=== PATIENT | male | born 1995 | race Hispanic/Latino ===

== ENCOUNTER 2021-03-24 17:15 | Emergency (ER) | payer OTHER, SELFPAY ==
[2021-03-24 17:43] VITALS: BP 104/69; PULSE 90; RESP 18; TEMP 36.8; O2SAT 97; BMI 23.8
[2021-03-24 18:22] LABS: COVID19 -Nasal RAPID Negative (Negative)
--- NOTE | 2021-03-24 18:32 | ED_ITS ---
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 Does note some cough no significant dyspnea or fevers. No abdominal pain nausea vomiting or diarrhea. Related Data Allergies Allergy/AdvReac Type Severity Reaction Status Date / Time aripiprazole [From Abilify] Allergy Swelling Verified 03/24/21 17:43 of Lip/Tongue/Throat Review of Systems Review of Systems Narrative: Remainder of complete review of systems is otherwise unremarkable except for that included in the HPI. Patient History Medical History (Updated 03/24/21 @ 18:35 by Leonora Hughes MD) COVID-19 Social History Smoking Status: Current every day smoker Smoking Status: Current every day smoker tobacco type: vaping alcohol intake frequency: a few times a month Substance Use Type: does not use Exam Narrative Exam Narrative: General: Alert appropriate in no acute distress Respiratory: Able to speak in full sentences, no obvious respiratory distress Skin: No obvious rashes, warm and dry Neurologic: Grossly intact no obvious asymmetries or abnormalities Psych: appropriate insight and affect, cooperative Initial Vital Signs Initial Vital Signs: Vital Signs Temperature 98.2 F 03/24/21 17:43 Pulse Rate 90 03/24/21 17:43 Respiratory Rate 18 03/24/21 17:43 Blood Pressure 104/69 03/24/21 17:43 Pulse Oximetry 97 03/24/21 17:43 Course Orders Ordered: ED Orders 03/24/21 17:52 COVID19 -Nasal swab/Pre-Proc Stat Vital Signs Vital signs: Vital Signs - 8 hr 03/24/21 17:43 Temperature 98.2 F Pulse Rate 90 Respiratory Rate 18 Blood Pressure 104/69 Pulse Oximetry 97 MDM - URI/Sore Throat Lab Data Labs: Lab Results 03/24/21 Range/Units 17:52 SARS-CoV-2 (PCR) Negative (Negative) MDM Narrative Medical decision making narrative: 25-year-old gentleman with minor upper respiratory symptoms, double vaccinated without yet being boosted. COVID test is negative. Vital signs are unremarkable and he does not need admission. Discuss suggestions for minimizing exposure to his son vaccinated and 2 small children. He is safe for home discharge Discharge Plan Departure Patient Disposition: Home Clinical Impression: COVID-19 Instructions: DI for COVID-19 (Suspected or Confirmed ) Activity Restrictions/Additional Instructions: Thank you for being vaccinated Your COVID test today was positive. Your symptoms are minor because you have been vaccinated Please do all that you can to isolate from your and children for at least the 1st 5 days. By you can reintegrate into the household that please wear a mask all the time your at home for an additional 5 days. Please try an use a separate bathroom from the rest of your family for the full 10 days. If you find that you are getting worse or feeling more short of breath, please return to the ER
== END 2021-03-24 18:41 | disposition home or self-care (01) ==
PROVIDERS: Emergency Provider Emergency Medicine
DX: U07.1 COVID-19 (principal); F17.290 Nicotine dependence, other tobacco product, uncomplicated
CPT/HCPCS: 87635; 99281; C9803

== ENCOUNTER 2021-07-08 15:17 | Emergency (ER) | payer OTHER, SELFPAY ==
[2021-07-08 15:31] VITALS: BP 148/80; PULSE 80; RESP 20; TEMP 36.3; O2SAT 98
[2021-07-08 16:06] LABS: Appearance Urine UA CLEAR; Bilirubin Urine UA NEGATIVE (NEGATIVE); Color Urine UA YELLOW; Glucose Urine UA NEGATIVE (Negative); Ketones Urine UA NEGATIVE (NEGATIVE); Leukocyte Esterase Urine UA NEGATIVE (NEGATIVE); Nitrite Urine UA NEGATIVE (Negative); Occult Blood Urine UA NEGATIVE (Negative); Protein Urine UA NEGATIVE (Negative); Specific Gravity Urine UA 1.015 (1.000-1.035)
[2021-07-08 16:07] LABS: UR Morphine/Opiate cutoff 300 Negative (Negative); Ur Creatinine Normal (Normal); Ur Specific Gravity Normal (Normal); Urine Amphetamines Negative (Negative); Urine Barbiturates Negative (Negative); Urine Benzodiazepines Negative (Negative); Urine Cocaine Negative (Negative); Urine MDMA Negative (Negative); Urine Methadone Negative (Negative); Urine Methamphetamines Negative (Negative); Urine Oxycodone Negative (Negative); Urine Phencyclidine Negative (Negative); Urine Tetrahydrocannabinol Negative (Negative); Urine Tricyclic Antidepressant Negative (Negative); Urine pH Normal (Normal)
[2021-07-08 16:20] LABS: COVID19 -Nasal RAPID Negative (Negative)
[2021-07-08 16:25] LABS: Bacteria Urine None Seen; Culture Indicated Urine Cult Not Indicated; RBC Urine None Seen (0-5/HPF); WBC Urine None Seen (0-5/HPF)
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
--- NOTE | 2021-07-08 17:43 | PC.NURSE ---
Seen by STAGE SET DESIGNER. Sitting in lobby [place]
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
[2021-07-08 19:01] LABS: Add Manual Diff / Slide Review NO; Basophils Absolute Auto 100 /uL (0-100); Basophils Percent Auto 0.8 % (0-2); Eosinophils Absolute Auto 100 /uL (0-450); Eosinophils Percent Auto 1.2 % (2-4); Hematocrit 42.8 % (41-53); Hemoglobin 15.1 g/dL (13.5-17.5); Lymphocytes Absolute Auto 3400 /uL (1100-4500); Lymphocytes Percent Auto 45.7 % (25-40); Mean Corpuscular HGB Conc 35.3 % (30-36); Mean Corpuscular Hemoglobin 28.7 PG (26-34); Mean Corpuscular Volume 81.2 fL (80-100); Monocytes Absolute Auto 400 /uL (0-900); Monocytes Percent Auto 5.8 % (3-14); Neutrophils Absolute Auto 3400 /uL (1500-7000); Neutrophils Percent Auto 46.5 % (50-75); Platelet Count 169 X10^3/uL (150-400); Red Blood Cell Count 5.27 X10^6/uL (4.5-5.9); Red Cell Distribution Width 13.3 % (11.6-14.8); White Blood Cell Count 7.4 X10^3/uL (4.5-11.0)
[2021-07-08 19:26] LABS: Acetaminophen < 10 ug/mL (10-30); Alanine Aminotransferase 21 IU/L (<50); Albumin 4.8 g/dL (3.5-5.0); Albumin Globulin Ratio 1.8 (1.0-2.8); Alkaline Phosphatase 56 U/L (38-126); Aspartate Aminotransferase 31 IU/L (17-59); BUN Creatinine Ratio 13.2 (6-22); Bilirubin Total 0.5 mg/dL (0.2-1.3); Blood Urea Nitrogen 15 mg/dL (9-20); Calcium 9.1 mg/dL (8.4-10.2); Carbon Dioxide 28 mmol/L (22-32); Chloride 105 mmol/L (98-107); Estimated Glomerular Filt Rate > 60 mL/min (>60); Ethanol (ETOH) < 10 mg/dL; Globulin 2.7 g/dL (1.7-4.1); Glucose 85 mg/dL (70-100); HEMOLYSIS < 15 (0-50); Salicylate < 1.0 mg/dL (<20); Sodium 139 mmol/L (137-145); Total Protein 7.5 g/dL (6.3-8.2)
--- NOTE | 2021-07-08 19:30 | PC.NURSE ---
patient calm in room with visitor
--- NOTE | 2021-07-08 19:41 | CM.SWNOTE ---
ENGINEERING GEOLOGIST Note ENGINEERING GEOLOGIST calls [facility], it is reported they are full. ENGINEERING GEOLOGIST calls [facility] and leaves VM requesting return call. ENGINEERING GEOLOGIST calls [facility] and leaves VM requesting return call. ENGINEERING GEOLOGIST calls [facility] and it is reported that they are full today. ENGINEERING GEOLOGIST calls [facility] and it is reported they have no beds today. ENGINEERING GEOLOGIST calls [facility], it is reported that they are full today. ENGINEERING GEOLOGIST calls [facility], it is reported they are full today. ENGINEERING GEOLOGIST calls [facility] and it is reported that they have beds and can review patient, ENGINEERING GEOLOGIST faxes clinicals for review. ED team to f/u with [facility] (Ph.# [phone]). Plan: Continue to seek voluntary inpatient bed for patient. ALEX Corbin
[2021-07-08 19:50] LABS: Free T4, Direct Thyroxine 0.86 ng/dL (0.78-2.19)
--- NOTE | 2021-07-08 20:01 | PC.NURSE ---
patient calm, given snack by visitor.
--- NOTE | 2021-07-08 20:15 | PC.NURSE ---
Patient's partner visits with baby. Patient interacting with baby, seems to put patient in a good mood
--- NOTE | 2021-07-08 21:49 | PC.NURSE ---
patient talking on portable phone to [facility], calm, laying in bed
--- NOTE | 2021-07-08 22:41 | PC.NURSE ---
I spoke with Chelsey at [facility] and they accept. Garland López, BROACHING MACHINE SET UP OPERATOR accepts. the patient can be there at 5am. patient request to go by POV with his command. [place] approves. provider aware.
--- NOTE | 2021-07-08 22:56 | PC.NURSE ---
patients command requests that the patient goes by ambulance. [facility] made aware. Ambulance is set up to arrive around 04:50 am. patient and provider aware. Nurse to nurse at [phone]. patient going to [address] [place] [address].
--- NOTE | 2021-07-08 22:59 | PC.NURSE ---
provider okayed for patient to take home medications. patient took mirtazapine 7.5mg 1 tablet. hydroxizine 100mg. and prazosin 2mg. provider and charge nurse aware.
[2021-07-08 23:37] VITALS: BP 130/68; PULSE 89; RESP 18; O2SAT 98
--- NOTE | 2021-07-08 23:42 | PC.NURSE ---
nurse to nurse report was given by me allyn Ferrer at [facility]. provider and charge aware.
--- NOTE | 2021-07-08 23:45 | PC.NURSE ---
left pt attempting to sleep.
== END 2021-07-09 05:32 ==
PROVIDERS: Emergency Medicine; Emergency Provider Emergency Medicine
DX: R45.851 Suicidal ideations (principal); Z20.822 Contact with and (suspected) exposure to COVID-19
CPT/HCPCS: 36415; 80053; 80305; 80320; 80329; 81001; 84439; 84443; 85025; 87635; 99284; 99291; C9803; G0480

== ENCOUNTER 2021-07-18 09:10 | Emergency (ER) | payer OTHER, SELFPAY ==
[2021-07-18 09:20] VITALS: BP 123/73; PULSE 85; RESP 14; TEMP 36.5; O2SAT 96; BMI 22.5
--- NOTE | 2021-07-18 09:35 | PC.NURSE ---
Pt on 1:1 observation as he is high risk.
--- NOTE | 2021-07-18 09:35 | ED.PSYCH ---
HPI - Psych General Chief Complaint: Psychiatric Symptoms Stated Complaint: SI Time Seen by Provider: 07/18/21 09:18 Source: patient Mode of arrival: Ambulatory History of Present Illness HPI Narrative: Patient is a 26-year-old male. He is active duty [place]. He is here with his command for evaluation of suicidal ideation. He states that he initially was told to come here to be evaluated by his command but he is currently here voluntarily. Has had issues with suicidal ideation in the past. Earlier this month was seen and evaluated in this emergency department and voluntarily transferred to outpatient mental health facility and has been subsequently discharged. He states that last evening he was having thoughts of hurting himself. [place] He states that he had tow ropes in his car. He apparently attached them to the bridge and to himself however when he turned around he saw his dog in the truck which caused him to change his mind. He states that his dog is really the only reason that he has not killed himself. He states he does not have any desire to live despite having children. He has attempted suicide in the past. He denies any alcohol or drugs. He states he has been taking his medications as directed but has not taken them yet this morning. He contacted his command last evening after the events described above was brought to the emergency department today. Related Data Home Medications Medication Instructions Recorded Confirmed alprazolam 2 mg tablet 2 mg PO BID 07/18/21 07/18/21 escitalopram oxalate 20 mg tablet 20 mg PO DAILY 07/18/21 07/18/21 (Lexapro) mirtazapine 15 mg tablet (Remeron) 15 mg PO DAILY 07/18/21 07/18/21 prazosin 2 mg capsule 3 mg PO QPM 07/18/21 07/18/21 Allergies Allergy/AdvReac Type Severity Reaction Status Date / Time aripiprazole [From Abilipedro] Allergy Swelling Verified 07/18/21 09:27 of Lip/Tongue/Throat Review of Systems Cardiovascular Cardiovascular: Reports system reviewed and no additional complaints, except as documented Respiratory Respiratory: Reports system reviewed and no additional complaints, except as documented Gastrointestinal Gastrointestinal: Reports system reviewed and no additional complaints, except as documented Integumentary/Breasts Skin/Breast: Reports system reviewed and no additional complaints, except as documented Neurologic Neurologic: Reports system reviewed and no additional complaints, except as documented Hematologic/Lymphatic On Anticoagulants: No Patient History Medical History Anxiety COVID-19 Depression PTSD (post-traumatic stress disorder) Social History Smoking Status: Current every day smoker Smoking Status: Current every day smoker tobacco type: vaping alcohol intake frequency: holidays/special occasions only Substance Use Type: does not use Exam Initial Vital Signs Initial Vital Signs: Vital Signs Temperature 97.7 F 07/18/21 09:20 Pulse Rate 85 07/18/21 09:20 Respiratory Rate 14 07/18/21 09:20 Blood Pressure 123/73 07/18/21 09:20 Pulse Oximetry 96 07/18/21 09:20 HENMT Head: normal to inspection and normocephalic Resp Effort & Inspection: normal respiratory effort Cardio Rate: regular rate GI Inspection: normal to inspection Skin General: no rashes or lesions noted Neuro General: patient alert, patient awake, patient oriented x3 and moves all extremities Cognition: normal cognition Speech: speech normal Gait: normal gait Extrem General: normal to inspection Psych Other: Patient is calm, cooperative, does have suicidal ideation not intoxicated. Scores GCS Margi coma scale eye opening: Spontaneous Margi coma scale verbal response: Orientated [place] coma scale motor response: Obey commands [place] coma scale total score: 15 Course Orders Ordered: ED Orders 07/18/21 09:34 Urine Drug Screen, Rapid Stat 07/18/21 09:44 Consult to CAMP DINING ROOM ATTENDANT - Berry Grower Stat 07/18/21 10:06 Acetaminophen Stat Complete Blood Count AUTO DIFF Stat Comprehensive Metabolic Panel Stat Ethanol (ETOH) Stat Free T4, Direct Thyroxine Stat Salicylate Stat Thyroid Stimulating Hormone Stat 07/18/21 10:13 COVID19 -Nasal RAPID/Pre-Proc Stat Discontinued Medications Diazepam (Diazepam 5 Mg Tablet) 5 mg PO NOW ONE Stop: 07/18/21 09:37 Last Admin: 07/18/21 09:51 Dose: 5 mg Documented by: MIKE Diazepam (Diazepam 5 Mg Tablet) 5 mg PO NOW ONE Stop: 07/18/21 13:43 Last Admin: 07/18/21 13:52 Dose: 5 mg Documented by: MELA Escitalopram Oxalate (Escitalopram 10 Mg Tablet) 10 mg PO NOW ONE Stop: 07/18/21 09:37 Last Admin: 07/18/21 09:56 Dose: 10 mg Documented by: TEO Vital Signs Vital signs: Vital Signs - 8 hr 07/18/21 09:20 Temperature 97.7 F Pulse Rate 85 Respiratory Rate 14 Blood Pressure 123/73 Pulse Oximetry 96 MDM - Psych Medical Records Attestation: I reviewed the patient's medical records. Lab Data Attestation: I reviewed the patient's lab results. Result diagrams: 07/18/21 10:06 07/18/21 10:06 Labs: Lab Results 07/18/21 07/18/21 07/18/21 Range/Units 09:34 10:06 10:06 WBC 6.0 (4.5-11.0) X10^3/uL RBC 5.20 (4.5-5.9) X10^6/uL Hgb 14.8 (13.5-17.5) g/dL Hct 43.0 (41-53) % MCV 82.6 (80-100) fL MCH 28.5 (26-34) PG MCHC 34.5 (30-36) % RDW 13.1 (11.6-14.8) % Plt Count 175 (150-400) X10^3/uL Neut % (Auto) 51.5 (50-75) % Lymph % (Auto) 38.6 (25-40) % Marinette % (Auto) 7.4 (3-14) % Eos % (Auto) 1.9 L (2-4) % Baso % (Auto) 0.6 (0-2) % Neut # (Auto) 3100 (8830-9261) /uL Lymph # (Auto) 2300 (5767-0855) /uL Marinette # (Auto) 400 (0-900) /uL Eos # (Auto) 100 (0-450) /uL Baso # (Auto) 0 (0-100) /uL Sodium 140 (137-145) mmol/L Potassium 4.4 (3.4-5.1) mmol/L Chloride 103 (98-107) mmol/L Carbon Dioxide 33 H (22-32) mmol/L BUN 12 (9-20) mg/dL Creatinine 1.14 (0.66-1.25) mg/dL Estimated GFR > 60 (>60) mL/min BUN/Creatinine Ratio 10.5 (6-22) Glucose 106 H (70-100) mg/dL Calcium 9.2 (8.4-10.2) mg/dL Total Bilirubin 0.4 (0.2-1.3) mg/dL AST 66 H (17-59) IU/L ALT 90 H (<50) IU/L Alkaline Phosphatase 60 (38-126) U/L Total Protein 7.3 (6.3-8.2) g/dL Albumin 4.5 (3.5-5.0) g/dL Globulin 2.8 (1.7-4.1) g/dL Albumin/Globulin Ratio 1.6 (1.0-2.8) TSH (0.47-4.68) uIU/mL Free T4 (0.78-2.19) ng/dL Salicylates < 1.0 (<20) mg/dL U Opiates 300ng/mL cut Negative (Negative) Ur Oxycodone Screen Negative (Negative) Urine Methadone Screen Negative (Negative) Acetaminophen < 10 (10-30) ug/mL Ur Barbiturates Screen Negative (Negative) U Tricyclic Antidepress Negative (Negative) Ur Phencyclidine Scrn Negative (Negative) Ur Amphetamines Screen Negative (Negative) U Methamphetamines Scrn Negative (Negative) Ur MDMA Scrn (Ecstasy) Negative (Negative) U Benzodiazepines Scrn Negative (Negative) Urine Cocaine Screen Negative (Negative) U Marijuana (THC) Screen Negative (Negative) Ethyl Alcohol < 10 ( - 10) mg/dL SARS-CoV-2 (PCR) (Negative) 07/18/21 07/18/21 Range/Units 10:06 10:13 WBC (4.5-11.0) X10^3/uL RBC (4.5-5.9) X10^6/uL Hgb (13.5-17.5) g/dL Hct (41-53) % MCV (80-100) fL MCH (26-34) PG MCHC (30-36) % RDW (11.6-14.8) % Plt Count (150-400) X10^3/uL Neut % (Auto) (50-75) % Lymph % (Auto) (25-40) % Marinette % (Auto) (3-14) % Eos % (Auto) (2-4) % Baso % (Auto) (0-2) % Neut # (Auto) (8833-1605) /uL Lymph # (Auto) (1478-4148) /uL Marinette # (Auto) (0-900) /uL Eos # (Auto) (0-450) /uL Baso # (Auto) (0-100) /uL Sodium (137-145) mmol/L Potassium (3.4-5.1) mmol/L Chloride (98-107) mmol/L Carbon Dioxide (22-32) mmol/L BUN (9-20) mg/dL Creatinine (0.66-1.25) mg/dL Estimated GFR (>60) mL/min BUN/Creatinine Ratio (6-22) Glucose (70-100) mg/dL Calcium (8.4-10.2) mg/dL Total Bilirubin (0.2-1.3) mg/dL AST (17-59) IU/L ALT (<50) IU/L Alkaline Phosphatase (38-126) U/L Total Protein (6.3-8.2) g/dL Albumin (3.5-5.0) g/dL Globulin (1.7-4.1) g/dL Albumin/Globulin Ratio (1.0-2.8) TSH 3.37 D (0.47-4.68) uIU/mL Free T4 0.86 (0.78-2.19) ng/dL Salicylates (<20) mg/dL U Opiates 300ng/mL cut (Negative) Ur Oxycodone Screen (Negative) Urine Methadone Screen (Negative) Acetaminophen (10-30) ug/mL Ur Barbiturates Screen (Negative) U Tricyclic Antidepress (Negative) Ur Phencyclidine Scrn (Negative) Ur Amphetamines Screen (Negative) U Methamphetamines Scrn (Negative) Ur MDMA Scrn (Ecstasy) (Negative) U Benzodiazepines Scrn (Negative) Urine Cocaine Screen (Negative) U Marijuana (THC) Screen (Negative) Ethyl Alcohol ( - 10) mg/dL SARS-CoV-2 (PCR) Negative (Negative) Urine Dip Bedside Urine Glucose Negative Bedside Urine Bilirubin - Negative Bedside Urine Ketone - Negative Urine Specific Mclean 1.020 Bedside Urine Occult Blood - Negative Bedside Urine pH 6 Bedside Urine Protein - Negative Bedside Urine Urobilinogen - Negative Bedside Urine Nitrite - Negative Bedside Urine Leukocytes - Negative Esterase MDM Narrative Medical decision making narrative: Patient is alert oriented x3. GCS of 15. He is medically cleared. No signs of trauma. Is here voluntarily. Patient is active duty and would benefit from transfer/admission to facility rather than civilian facility. Will work on transport. Patient is voluntary. He remains stable. Has had some anxiety. Labs unremarkable. Discussed the case with Dr. Dodson with mental health at [facility] who accepts the patient for admission. Patient is stable for transport. Patient expressed understanding and agreement this plan. Discharge Plan Departure Patient Disposition: Xfer Psychiatric Hosp Clinical Impression: Suicidal intent, Anxiety
--- NOTE | 2021-07-18 09:43 | PC.NURSE ---
Dr Callahan in room speaking with patient.
[2021-07-18 09:48] LABS: UR Morphine/Opiate cutoff 300 Negative (Negative); Ur Creatinine Normal (Normal); Ur Specific Gravity Normal (Normal); Urine Amphetamines Negative (Negative); Urine Barbiturates Negative (Negative); Urine Benzodiazepines Negative (Negative); Urine Cocaine Negative (Negative); Urine MDMA Negative (Negative); Urine Methadone Negative (Negative); Urine Methamphetamines Negative (Negative); Urine Oxycodone Negative (Negative); Urine Phencyclidine Negative (Negative); Urine Tetrahydrocannabinol Negative (Negative); Urine Tricyclic Antidepressant Negative (Negative); Urine pH Normal (Normal)
[2021-07-18] MEDS: diazePAM 5 MG TABLET PO ×2 (09:51→13:52)
--- NOTE | 2021-07-18 09:52 | PC.NURSE ---
Torie in room speaking to pt,giving meds to him.
[2021-07-18] MEDS: ESCITALOPRAM 10 MG TABLET PO (09:56)
--- NOTE | 2021-07-18 10:00 | PC.NURSE ---
Pt using his phone,pts friend in room with him.
--- NOTE | 2021-07-18 10:10 | PC.NURSE ---
Currently speaking with [facility] regarding possible transfer.
[2021-07-18 10:14] LABS: Add Manual Diff / Slide Review NO; Basophils Absolute Auto 0 /uL (0-100); Basophils Percent Auto 0.6 % (0-2); Eosinophils Absolute Auto 100 /uL (0-450); Eosinophils Percent Auto 1.9 % (2-4); Hemoglobin 14.8 g/dL (13.5-17.5); Lymphocytes Absolute Auto 2300 /uL (1100-4500); Lymphocytes Percent Auto 38.6 % (25-40); Mean Corpuscular HGB Conc 34.5 % (30-36); Mean Corpuscular Hemoglobin 28.5 PG (26-34); Mean Corpuscular Volume 82.6 fL (80-100); Monocytes Absolute Auto 400 /uL (0-900); Monocytes Percent Auto 7.4 % (3-14); Neutrophils Absolute Auto 3100 /uL (1500-7000); Neutrophils Percent Auto 51.5 % (50-75); Platelet Count 175 X10^3/uL (150-400); Red Cell Distribution Width 13.1 % (11.6-14.8)
--- NOTE | 2021-07-18 10:16 | PC.NURSE ---
Pt on phone,friend in room
[2021-07-18 10:27] LABS: Acetaminophen < 10 ug/mL (10-30); Alanine Aminotransferase 90 IU/L (<50); Albumin 4.5 g/dL (3.5-5.0); Albumin Globulin Ratio 1.6 (1.0-2.8); Alkaline Phosphatase 60 U/L (38-126); Aspartate Aminotransferase 66 IU/L (17-59); BUN Creatinine Ratio 10.5 (6-22); Bilirubin Total 0.4 mg/dL (0.2-1.3); Blood Urea Nitrogen 12 mg/dL (9-20); Calcium 9.2 mg/dL (8.4-10.2); Carbon Dioxide 33 mmol/L (22-32); Chloride 103 mmol/L (98-107); Estimated Glomerular Filt Rate > 60 mL/min (>60); Ethanol (ETOH) < 10 mg/dL; Globulin 2.8 g/dL (1.7-4.1); Glucose 106 mg/dL (70-100); HEMOLYSIS 16 (0-50); Potassium 4.4 mmol/L (3.4-5.1); Salicylate < 1.0 mg/dL (<20); Sodium 140 mmol/L (137-145); Total Protein 7.3 g/dL (6.3-8.2)
--- NOTE | 2021-07-18 10:30 | PC.NURSE ---
Pt changing into paper scrubs and pt being moved to room 13,with continuing 1:1 observation by FOOD PREPARATION WORKER.
[2021-07-18 10:36] LABS: COVID19 -Nasal RAPID Negative (Negative)
[2021-07-18 10:50] LABS: Free T4, Direct Thyroxine 0.86 ng/dL (0.78-2.19)
[2021-07-18 11:04] LABS: Thyroid Stimulating Hormone 3.37 uIU/mL (0.47-4.68)
--- NOTE | 2021-07-18 11:42 | PC.NURSE ---
TIE INSPECTOR at bedside.
--- NOTE | 2021-07-18 12:09 | PC.NURSE ---
Duffel bag and shoes dropped off at Registration Desk for pt, pt notified and belongings placed in locked cabinet with stickers.
--- NOTE | 2021-07-18 12:47 | PC.NURSE ---
Pt requested second phone from his [employer] bag, states this phone has his music, pt provided phone. Pt also requested duffel bag and metal water bottle, explained to pt unable to provide those items r/t risk, pt verbalizes understanding. Called dietary requesting second grilled cheese and chips.
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
--- NOTE | 2021-07-18 14:13 | CM.SWNOTE ---
ED Social Work Note: Patient was accepted for admission to [facility] fr[facility]sca [facility] at [phone]. Clinicals faxed to [phone]. Patient notified. Attending and assigned nurse aware. Transportation arranged via [facility]
== END 2021-07-18 14:23 ==
PROVIDERS: Emergency Provider Emergency Medicine
DX: R45.851 Suicidal ideations (principal); F41.9 Anxiety disorder, unspecified; Z20.822 Contact with and (suspected) exposure to COVID-19
CPT/HCPCS: 36415; 80053; 80305; 80320; 80329; 81003; 84439; 84443; 85025; 87635; 99283; 99284; C9803; G0480

== ENCOUNTER 2021-11-06 10:47 | Emergency (ER) | payer OTHER, SELFPAY ==
[2021-11-06 11:15] VITALS: BP 150/73; PULSE 92; RESP 16; TEMP 35.9; O2SAT 98; BMI 23.5
--- NOTE | 2021-11-06 11:17 | DI.RAD.S_ITS ---
PROCEDURE: XR ANKLE RT MIN 3V INDICATIONS: fall thursday, right ankle pain TECHNIQUE: 3 views of the ankle were acquired. COMPARISON: [facility], , ANKLE MIN 3VW (RT), 02/28/2010, 20:44. FINDINGS: Bones: No fractures or dislocations. There is a lucency in the anterior aspect of the tibial plafond. Possible intra-articular body in the lateral aspect of the ankle mortise. Ankle mortise is normally aligned. No suspicious bony lesions. Soft tissues: Small tibiotalar joint effusion. Achilles tendon appears normal. IMPRESSION: 1. A lucency in the anterior aspect of the tibial plafond. This could represent an osteochondral injury. 2. Possible intra-articular body. 3. If clinical symptoms persist or clinical suspicion for internal derangement is high, MRI is suggested for further evaluation. Dictated by: Griselda Black M.D. on 11/06/2021 at 12:02 Approved by: Griselda Black M.D. on 11/06/2021 at 12:06
--- NOTE | 2021-11-06 11:18 | DI.RAD.S_ITS ---
PROCEDURE: XR SACRUM COCCYX MIN 2V INDICATIONS: fall on thursday pain in coccyx radiating right buttocks TECHNIQUE: 3 views of the sacrum and coccyx acquired. COMPARISON: None. FINDINGS: Bones: No fractures or dislocations. No suspicious bony lesions. Soft tissues: Visualized bowel gas pattern is normal. No suspicious soft tissue densities. IMPRESSION: No acute osseous abnormalities. If clinical symptoms persist or clinical suspicion for pathology is high, a repeat examination in 7-10 days, or advanced imaging such as CT or MRI is suggested for further evaluation. Dictated by: Griselda Black M.D. on 11/06/2021 at 12:00 Approved by: Griselda Black M.D. on 11/06/2021 at 12:01
--- NOTE | 2021-11-06 13:49 | ED.BACK ---
HPI - Back Pain/Injury <NATALYA Dupree - Last Filed: 11/06/21 14:30> General Chief Complaint: Back Pain/Injury Stated Complaint: Lower back pain since fall Time Seen by Provider: 11/06/21 13:48 History of Present Illness HPI Narrative: 26-year-old male, daily smoker and active-duty , presents emergency department with right ankle and coccyx pain after falling in the shower 3 nights ago. Patient denies hitting his head or any loss of consciousness. Patient denies any loss of control of bowel or bladder. Patient able to stand without any ankle pain. Coccyx pain worsens with palpation and certain movements. Related Data Home Medications Medication Instructions Recorded Confirmed alprazolam 2 mg tablet 2 mg PO BID 07/18/21 07/18/21 escitalopram oxalate 20 mg tablet 20 mg PO DAILY 07/18/21 07/18/21 (Lexapro) mirtazapine 15 mg tablet (Remeron) 15 mg PO DAILY 07/18/21 07/18/21 prazosin 2 mg capsule 3 mg PO QPM 07/18/21 07/18/21 Allergies Allergy/AdvReac Type Severity Reaction Status Date / Time aripiprazole [From Abilify] Allergy Swelling Verified 11/06/21 11:17 of Lip/Tongue/Throat Review of Systems <NATALYA Dupree - Last Filed: 11/06/21 14:30> Review of Systems Narrative: Narrative: GENERAL: Denies chills, fatigue, fever, sweats. See HPI HEENT: Denies sinus pain, ear pain, sore throat, difficulty swallowing, dizziness. RESPIRATORY: Denies dyspnea, cough, wheezing, sputum. CARDIOVASCULAR: Denies chest pain, palpitations, edema. GASTROINTESTINAL: Denies nausea, vomiting, abdominal pain, diarrhea, constipation. : Denies dysuria, frequency, incontinence, hematuria, urinary retention, flank pain. MSK: Endorses right ankle and coccyx pain status post fall. SKIN: Denies rash, skin lesions, or pruritis. NEUROLOGIC: Denies weakness, dizziness, headache, numbness, confusion. Denies symptoms of saddle anesthesia. PSYCHIATRIC: No concerning psychosocial issues. Patient History <NATALYA Dupree - Last Filed: 11/06/21 14:30> Medical History Anxiety COVID-19 Depression PTSD (post-traumatic stress disorder) Social History Smoking Status: Current every day smoker Smoking Status: Current every day smoker tobacco type: vaping alcohol intake frequency: holidays/special occasions only Substance Use Type: does not use Exam <NATALYA Dupree - Last Filed: 11/06/21 14:30> Narrative Exam Narrative: Exam Narrative: GENERAL: This is a well-nourished, well-developed patient, in no acute distress HEAD: Atraumatic. Normocephalic. Back: No paraspinous tenderness or asymmetry noted. Coccyx region is tender to palpation with no evidence of trauma or bruising. MSK: Moves all extremities. Normal range of motion, no clubbing or edema. Neurovascularly intact. Right ankle swelling. NEURO: A&O x 3. SKIN: Warm, dry, no rashes or lesions noted. Initial Vital Signs Initial Vital Signs: Vital Signs Temperature 96.7 F L 11/06/21 11:15 Pulse Rate 92 H 11/06/21 11:15 Respiratory Rate 16 11/06/21 11:15 Blood Pressure 150/73 H 11/06/21 11:15 Pulse Oximetry 98 11/06/21 11:15 Oxygen Delivery Method 11/06/21 11:15 Reviewed Back/Spine/Pelvis Other: BACK finisher card tender along coccyx but free of any obvious external abnormalities. There is no asymmetry, swelling, bruising or wound. There is no paraspinal tenderness or CVA tenderness. SI joints nontender. No pain over spinous processes. No symptoms of cauda equina such as saddle anesthesia. Sensation is grossly intact. ROM is full and without pain. SLE is negative bilaterally. Reflexes 2-3 at patella and achilles bilaterally. Resistive strengths are within normal limits Gait is normal. Heel toe balance is intact. Extrem Other: FOOT: There is mild swelling but no bruising or asymmetry. There is no tenderness to general palpation. Sensation grossly intact. There is no tenderness over the mid-foot, metatarsals or arch. The ankle flexion and extension is intact. Toes range of motion intact. The contralateral foot exam is unremarkable. ANKLE: There is mild swelling but no bruising or asymmetry. There is no tenderness to general palpation. Sensation grossly intact. There is no tenderness over the medial malleolus, proximal tibia/fibula. The anterior mortise is non-tender. Flexion and extension is intact. The contralateral ankle exam is unremarkable. <DO Tena Kendall Last Filed: 11/07/21 08:00> Initial Vital Signs Initial Vital Signs: Vital Signs Temperature 96.7 F L 11/06/21 11:15 Pulse Rate 92 H 11/06/21 11:15 Respiratory Rate 16 11/06/21 11:15 Blood Pressure 150/73 H 11/06/21 11:15 Pulse Oximetry 98 11/06/21 11:15 Oxygen Delivery Method 11/06/21 11:15 Course <NATALYA Dupree - Last Filed: 11/06/21 14:30> Orders Ordered: ED Orders 11/06/21 11:17 XR ankle RT min 3V Stat 11/06/21 11:18 XR sacrum coccyx min 2V Stat Vital Signs Vital signs: Vital Signs - 8 hr 11/06/21 11:15 Temperature 96.7 F L Pulse Rate 92 H Respiratory Rate 16 Blood Pressure 150/73 H Pulse Oximetry 98 Oxygen Delivery Method Room Air <DO Tena Kendall Last Filed: 11/07/21 08:00> Orders Ordered: ED Orders 11/06/21 11:17 XR ankle RT min 3V Stat 11/06/21 11:18 XR sacrum coccyx min 2V Stat Vital Signs Vital signs: Vital Signs - 8 hr 11/06/21 11:15 Temperature 96.7 F L Pulse Rate 92 H Respiratory Rate 16 Blood Pressure 150/73 H Pulse Oximetry 98 Oxygen Delivery Method Room Air MDM - Back Pain/Injury <NATALYA Dupree Last Filed: 11/06/21 14:30> Differential Diagnosis Differential diagnosis: Likely other (Ankle sprain) Imaging Data Extremity x-ray #1: Radiologist's Impression: [address] [address] XRay Report Signed Patient: Diallo Diez MR#: [id number] : 1995 Acct:[id number] Age/Sex: 26 / M Date of Service: 11/06/21 Loc: ED Accession Number: [id number] ?? Procedure: XR sacrum coccyx min 2V Ordering Provider: Aspen Khanna D.O. PROCEDURE:? XR SACRUM COCCYX MIN 2V ? INDICATIONS:? fall on thursday pain in coccyx radiating right buttocks ? TECHNIQUE:? 3 views of the sacrum and coccyx acquired.? ? COMPARISON:? None. ? FINDINGS:? ? Bones:? No fractures or dislocations.? No suspicious bony lesions.? ? Soft tissues:? Visualized bowel gas pattern is normal.? No suspicious soft tissue densities.? ? IMPRESSION:? No acute osseous abnormalities.? If clinical symptoms persist or clinical suspicion for pathology is high, a repeat examination in 7-10 days, or advanced imaging such as CT or MRI is suggested for further evaluation. ? ? Dictated by: Griselda Black M.D. on 11/06/2021 at 12:00 ? ? Approved by: Griselda Black M.D. on 11/06/2021 at 12:01? Extremity x-ray #2: Radiologist's Impression: [address] [address] XRay Report Signed Patient: Diallo Diez MR#: [id number] : 1995 Acct:[id number] Age/Sex: 26 / M Date of Service: 11/06/21 Loc: ED Accession Number: [id number] ?? Procedure: XR ankle RT min 3V Ordering Provider: Aspen Khanna D.O. PROCEDURE:? XR ANKLE RT MIN 3V ? INDICATIONS:? fall dexter, right ankle pain ? TECHNIQUE:? 3 views of the ankle were acquired.? ? COMPARISON:? [facility], , ANKLE MIN 3VW (RT), 02/28/2010, 20:44. ? FINDINGS:? ? Bones:? No fractures or dislocations.? There is a lucency in the anterior aspect of the tibial plafond.? Possible intra-articular body in the lateral aspect of the ankle mortise.? Ankle mortise is normally aligned.? No suspicious bony lesions.? ? Soft tissues:? Small tibiotalar joint effusion.? Achilles tendon appears normal.? ? ? IMPRESSION:? ? 1. A lucency in the anterior aspect of the tibial plafond.? This could represent an osteochondral injury. 2. Possible intra-articular body. 3.? If clinical symptoms persist or clinical suspicion for internal derangement is high, MRI is suggested for further evaluation. ? ? ? Dictated by: Griselda Black M.D. on 11/06/2021 at 12:02 ? ? Approved by: Griselda Black M.D. on 11/06/2021 at 12:06 ? MDM Narrative Medical decision making narrative: 26-year-old male presents to the emergency department with right ankle and coccyx pain after falling in the bathtub 3 nights ago. X-rays were negative for fracture. Possible fragment in right ankle but patient is not complaining of any pain in that area. Patient wears high-top boots as active-duty does not require a walking boot at this time. Will discharge home with instructions for rice and NSAIDs. Discussed plan of care and return precautions with patient, who was agreeable with course of action. Discharge Plan Departure Patient Disposition: Home Clinical Impression: Ankle sprain Instructions: DI for Ankle Sprain Activity Restrictions/Additional Instructions: *You have been diagnosed with a right ankle sprain. The x-ray revealed no fracture but did identify a possible bone fragment. The x-ray of your coccyx was normal. As we discussed, Rest (modified activity), along with ice, compression wrap/splint-immobilize as directed and elevation above heart. Tylenol or Ibuprofen for discomfort. For typical musculoskeletal injuries, I recommend ibuprofen 600 mg 3 times a day with food for at was 3-5 days. If your ankle pain persists past 10 days, please follow-up with your family doctor as a MRI may be necessary. For any worsening symptoms, follow up with family doctor or feel free to return to the emergency department. *What to do: *Please continue to take your regular medications as directed. [ ] New medication prescriptions sent to your pharmacy: [ ] [ ] New medication written as a paper prescription [x ] No new medications given *Please follow up with your primary care provider in 2-3 days, call for an appointment. Let them know you were seen in the Emergency Department and that we ask that you be seen in follow up. We will electronically transmit a record of today's note if your PCP is in our system *If you do not have a primary care provider please contact the [facility] Resource line at [phone]. They will ask some questions about your medical history and help get you set up with a doctor in the community. ? Return to ER if you should have any new, worsening or concerning symptoms, such as worsening pain, severe headache, confusion, chest pain, difficulty breathing, fever greater than 101 F, shaking chills, persistent vomiting to the point that you cannot drink fluids, or other new or worsening symptoms. Prescriptions: No Action alprazolam 2 mg Tablet 2 mg PO BID mirtazapine [Remeron] 15 mg Tablet 15 mg PO DAILY prazosin 2 mg Capsule 3 mg PO QPM escitalopram oxalate [Lexapro] 20 mg Tablet 20 mg PO DAILY Referrals: ProviderTomas [Primary Care Provider] - Visit Report Forms: Patient Portal/API <Aspen Khanna DO - Last Filed: 11/07/21 08:00> Cosign ED Attending Drewature Attestation: I was immediately available in the department for consultation. Documentation has been reviewed. I agree with assessment and plan.
== END 2021-11-06 14:25 | disposition home or self-care (01) ==
PROVIDERS: Emergency Provider Registered Nurse
DX: S93.401A Sprain of unspecified ligament of right ankle, initial encounter (principal); M53.3 Sacrococcygeal disorders, not elsewhere classified; W19.XXXA Unspecified fall, initial encounter
CPT/HCPCS: 72220; 73610; 99281; 99283

== ENCOUNTER 2021-12-22 05:35 | Emergency (ER) | payer OTHER, SELFPAY ==
[2021-12-22 05:43] VITALS: BP 140/71; PULSE 101; RESP 19; TEMP 35.9; O2SAT 99; BMI 27.8
--- NOTE | 2021-12-22 05:53 | ED.RECABL ---
HPI - Recheck/Abnormal Lab/Rx General Chief Complaint: Recheck/Abnormal Lab/Rx Stated Complaint: withdraws/ran out of meds. 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 He has been out of his medications for the past 2 days. He states he was trying to wait until the when his prescribing provider returned from vacation. He states that last evening he started to have shaking and some hallucinations and tremoring of his jaw. This morning he felt like he could not make it any longer so he came to the emergency department. He states he is here for just a refill of his medications. Related Data Home Medications Medication Instructions Recorded Confirmed alprazolam 2 mg tablet 2 mg PO BID 07/18/21 07/18/21 escitalopram oxalate 20 mg tablet 20 mg PO DAILY 07/18/21 07/18/21 (Lexapro) mirtazapine 15 mg tablet (Remeron) 15 mg PO DAILY 07/18/21 07/18/21 prazosin 2 mg capsule 3 mg PO QPM 07/18/21 07/18/21 Previous Rx's Medication Instructions Recorded ziprasidone HCl 20 mg capsule 20 mg PO BID #60 caps 12/22/21 (Geodon) Allergies Allergy/AdvReac Type Severity Reaction Status Date / Time aripiprazole [From Abilify] Allergy Swelling Verified 11/06/21 11:17 of Lip/Tongue/Throat Review of Systems Musculoskeletal Musculoskeletal: Reports system reviewed and no additional complaints, except as documented Integumentary/Breasts Skin/Breast: Reports system reviewed and no additional complaints, except as documented Psychiatric Psychiatric: Reports system reviewed and no additional complaints, except as documented Patient History Medical History Anxiety COVID-19 Depression PTSD (post-traumatic stress disorder) Social History Smoking Status: Current every day smoker Smoking Status: Current every day smoker tobacco type: vaping alcohol intake frequency: holidays/special occasions only Substance Use Type: does not use Exam Initial Vital Signs Initial Vital Signs: Vital Signs Temperature 96.7 F L 12/22/21 05:43 Pulse Rate 101 H 12/22/21 05:43 Respiratory Rate 19 12/22/21 05:43 Blood Pressure 140/71 12/22/21 05:43 Pulse Oximetry 99 12/22/21 05:43 Oxygen Delivery Method 12/22/21 05:43 Const General: No ill appearing Resp Effort & Inspection: normal respiratory effort Cardio Rate: regular rate Neuro General: patient alert, patient awake and moves all extremities Psych Other: Anxious, does have some fine tremors. Reports hallucinations. Course Orders Ordered: Discontinued Medications Lorazepam (Lorazepam 0.5 Mg Tablet) 1 mg PO NOW ONE Stop: 12/22/21 05:51 Vital Signs Vital signs: Vital Signs - 8 hr 12/22/21 05:43 Temperature 96.7 F L Pulse Rate 101 H Respiratory Rate 19 Blood Pressure 140/71 Pulse Oximetry 99 Oxygen Delivery Method Room Air MDM - Recheck/Abnormal Lab/Rx MDM Narrative Medical decision making narrative: Will refill his medication. He did have the bottle with him. He takes 20 mg 2 times a day. He was given an Ativan here in the emergency department as Geodon is not on our formulary. A prescription was printed for him so that he could feel the pharmacy of his choice. No indication for admission to the hospital. He was given return precautions. Expressed understanding and agreement. Discharge Plan Departure Patient Disposition: Home Clinical Impression: Encounter for medication refill Activity Restrictions/Additional Instructions: Take the medications as directed. I do recommend that you contact your prescribing provider when they return from leave for continued refills. Prescriptions: New ziprasidone HCl [Geodon] 20 mg capsule 20 mg PO BID Qty: 60 0RF Rx Instructions: give with food (meal/snack) No Action alprazolam 2 mg Tablet 2 mg PO BID mirtazapine [Remeron] 15 mg Tablet 15 mg PO DAILY prazosin 2 mg Capsule 3 mg PO QPM escitalopram oxalate [Lexapro] 20 mg Tablet 20 mg PO DAILY Referrals: Provider,Tomas GALINDO [Primary Care Provider] -
[2021-12-22] MEDS: LORazepam 0.5 MG TABLET 1 MG PO (05:58)
== END 2021-12-22 06:03 | disposition home or self-care (01) ==
PROVIDERS: Emergency Provider Emergency Medicine
DX: Z76.0 Encounter for issue of repeat prescription (principal); R44.3 Hallucinations, unspecified
CPT/HCPCS: 99283

== ENCOUNTER 2022-07-19 22:07 | Emergency (ER) | payer OTHER, SELFPAY ==
[2022-07-19 22:16] VITALS: BP 184/107; PULSE 108; RESP 20; TEMP 36.2; O2SAT 100; BMI 26.3
--- NOTE | 2022-07-19 22:21 | DI.RAD.S_ITS ---
PROCEDURE: XR CHEST 1V INDICATIONS: chest pain TECHNIQUE: One view of the chest was acquired. COMPARISON: None. FINDINGS: Surgical changes and devices: None. Lungs and pleura: Lungs are clear. No pleural effusions or pneumothorax. Mediastinum: Mediastinal contours appear normal. Heart size is normal. Bones and chest wall: No suspicious bony lesions. Overlying soft tissues appear unremarkable. IMPRESSION: Normal for age, source of current chest pain symptoms is not seen. Dictated by: Jim Squires M.D. on 07/19/2022 at 22:38 Approved by: Jim Squires M.D. on 07/19/2022 at 22:38
[2022-07-19] MEDS: ASPIRIN 81 MG CHEW TAB 324 MG PO (22:39)
--- NOTE | 2022-07-19 22:41 | ED_ITS ---
HPI - Chest Pain General Chief Complaint: Chest Pain Stated Complaint: High heart rate, feeling faint Time Seen by Provider: 07/19/22 22:41 Source: patient Mode of arrival: Ambulatory Limitations: no limitations History of Present Illness HPI narrative: 27-year-old gentleman with a history of schizophrenia with who is hallucinations for which he is on Geodon 20 mg twice a day comes in this evening complaining of tachycardia, significant anxiety and dramatic uncontrolled tremors. Notes that today he has been busy he has not taken his BuSpar nor his Geodon today. No fevers, cough, chills, abdominal pain. No new medications and no recreational medications. Related Data Home Medications Medication Instructions Recorded Confirmed alprazolam 2 mg tablet 2 mg PO BID 07/18/21 07/18/21 escitalopram oxalate 20 mg tablet 20 mg PO DAILY 07/18/21 07/18/21 (Lexapro) mirtazapine 15 mg tablet (Remeron) 15 mg PO DAILY 07/18/21 07/18/21 prazosin 2 mg capsule 3 mg PO QPM 07/18/21 07/18/21 Previous Rx's Medication Instructions Recorded ziprasidone HCl 20 mg capsule 20 mg PO BID #60 caps 12/22/21 (Geodon) Allergies Allergy/AdvReac Type Severity Reaction Status Date / Time aripiprazole [From Abilify] Allergy Swelling Verified 11/06/21 11:17 of Lip/Tongue/Throat Review of Systems Review of Systems Narrative: Pertinent positive and negative findings as per HPI Patient History Medical History (Updated 07/20/22 @ 01:43 by Leonora Hughes MD) Anxiety COVID-19 Depression PTSD (post-traumatic stress disorder) Schizophrenia Social History Smoking Status: Current every day smoker Smoking Status: Current every day smoker tobacco type: vaping alcohol intake frequency: holidays/special occasions only Substance Use Type: does not use Exam Initial Vital Signs Initial Vital Signs: Vital Signs Temperature 97.2 F L 07/19/22 22:16 Pulse Rate 108 H 07/19/22 22:16 Respiratory Rate 20 07/19/22 22:16 Blood Pressure 184/107 H 07/19/22 22:16 Pulse Oximetry 100 07/19/22 22:16 Oxygen Delivery Method Room Air 07/19/22 22:16 General: Fairly violent uncontrolled shaking while still able to communicate clearly. States that he is anxious and he can not stop shaking. HEENT: Moist mucous membranes, normal sclera with reactive pupils, Respiratory: Lungs are clear to auscultation, no wheezing no rales no rhonchi. Full and symmetrical air movement Cardiac: Mild tachycardia otherwise Regular rate and rhythm no murmurs no bruits Abdomen: Soft, nontender, good bowel tones, no flank pain Skin: Warm and dry, no rashes Neurologic: Shaking versus course motor tremor, moving all extremities, fluent speech pattern Extremities: No trauma, well perfused Psych: Cooperative, anxious Course Orders Ordered: ED Orders 07/19/22 22:21 XR chest 1V Stat COVID19 -Nasal RAPID Stat EKG-12 Lead Stat 07/19/22 22:27 PTT Partial Thromboplastin Pito Stat Prothrombin Time INR Stat 07/19/22 23:13 Complete Blood Count AUTO DIFF Stat Comprehensive Metabolic Panel Stat Lipase Stat Magnesium Stat Troponin & CK Cardiac Panel Stat Discontinued Medications Aspirin (Aspirin 81 Mg Chew Tab) 324 mg PO NOW ONE Stop: 07/19/22 22:22 Last Admin: 07/19/22 22:39 Dose: 324 mg Documented By: ARLENE Lorazepam (Lorazepam 2 Mg/Ml Inj) 2 mg IV NOW ONE Stop: 07/19/22 22:47 Last Admin: 07/19/22 23:01 Dose: 2 mg Documented By: GEETHA Quetiapine Fumarate (Quetiapine 25 Mg Tablet) 50 mg PO NOW ONE Stop: 07/20/22 00:25 Last Admin: 07/20/22 00:36 Dose: 50 mg Documented By: ARLENE Vital Signs Vital signs: Vital Signs - 8 hr 07/19/22 22:16 07/19/22 23:02 07/19/22 23:30 Temperature 97.2 F L Pulse Rate 108 H 90 88 Respiratory Rate 20 19 17 Blood Pressure 184/107 H Pulse Oximetry 100 98 98 Oxygen Delivery Method Room Air 07/20/22 00:02 Temperature Pulse Rate 99 H Respiratory Rate 24 Blood Pressure Pulse Oximetry Oxygen Delivery Method MDM - Chest Pain Lab Data 07/19/22 23:13 07/19/22 23:13 Labs: Lab Results 07/19/22 07/19/22 07/19/22 Range/Units 22:27 23:13 23:13 WBC 8.2 (4.5-11.0) X10^3/uL RBC 5.09 (4.5-5.9) X10^6/uL Hgb 15.1 (13.5-17.5) g/dL Hct 41.8 (41-53) % MCV 82.0 (80-100) fL MCH 29.6 (26-34) PG MCHC 36.0 (30-36) % RDW 12.6 (11.6-14.8) % Plt Count 181 (150-400) X10^3/uL Neut % (Auto) 53.7 (50-75) % Lymph % (Auto) 38.4 (25-40) % [place] % (Auto) 6.4 (3-14) % Eos % (Auto) 0.8 L (2-4) % Baso % (Auto) 0.7 (0-2) % Neut # (Auto) 4400 (0398-4612) /uL Lymph # (Auto) 3100 (1391-9582) /uL [place] # (Auto) 500 (0-900) /uL Eos # (Auto) 100 (0-450) /uL Baso # (Auto) 100 (0-100) /uL PT 11.8 (10.1-12.7) SECONDS INR 1.0 (0.9-1.3) APTT 32 (26-36) SECONDS Sodium 135 L (137-145) mmol/L Potassium 3.5 (3.4-5.1) mmol/L Chloride 100 (98-107) mmol/L Carbon Dioxide 28 (22-32) mmol/L BUN 11 (9-20) mg/dL Creatinine 1.38 H (0.66-1.25) mg/dL Estimated GFR > 60 (>60) mL/min BUN/Creatinine Ratio 8.0 (6-22) Glucose 102 H (70-100) mg/dL Calcium 8.8 (8.4-10.2) mg/dL Magnesium 1.8 (1.6-2.3) mg/dL Total Bilirubin 0.5 (0.2-1.3) mg/dL AST 28 (17-59) IU/L ALT 21 (<50) IU/L Alkaline Phosphatase 60 (38-126) U/L Total Creatine Kinase 244 H (55-170) U/L CK-MB (CK-2) 0.45 (<2.37) ng/mL CK-MB (CK-2) Rel Index 0.2 L (1.5-5.0) % Troponin I < 0.012 (0.01-0.034) ng/mL Total Protein 7.0 (6.3-8.2) g/dL Albumin 4.4 (3.5-5.0) g/dL Globulin 2.6 (1.7-4.1) g/dL Albumin/Globulin Ratio 1.7 (1.0-2.8) Lipase 36 (23-300) U/L MDM Narrative Medical decision making narrative: CC: Shaking and tremors with increased anxiety. This is an acute problem uncertain prognosis Complicating co-morbidities: Schizophrenia with missed doses of BuSpar and Geodon today Data collected from: patient, Differential considered: Acute anxiety reaction, medication side effect or withdrawal symptom Exam documented above, pertinent findings include: Significant shaking with otherwise 9 exam Lab Test results independently reviewed as above. Pertinent findings: CBC is unremarkable with no acute anemia or leukocytosis Chemistries notable for slight increase in creatinine and slight increase in creatinine kinase. I suspect that the elevated creatinine kinase is from the severe motor activity from the shaking. Imaging studies independently reviewed: Chest x-ray is unremarkable Consultations: Treatments: We discussed options for treatment in the emergency department as he has experienced this before. He states that typically taking his medications helped. In the past benzodiazepines have been effective. Because we do not have Geodon on formulary and he is allergic to Abilify opt to give him 2 mg of IV Ativan. He has been on alprazolam in the past with success. Re-evaluations: Patient is re-evaluated and the shaking and tremors have compl etely resolved. He has an odd rhythmic blinking at this point in his complaining of visual hallucinations. His notes that this is somewhat common when he misses his medications. With shared decision making we opted to try 50 mg of Seroquel as he has been on this successfully in the past to see if that will help the hallucinations calm enough that he feels safe in going home and taking his Geodon at home. Re-evaluated after the Seroquel and the rhythmic blinking has resolved. He does not appear to be responding to internal stimuli. States that he is still having some hallucinations but feel safe enough at this point that he would like to be discharged home. Has his at his bedside who is comfortable taking him. Discussion: 27-year-old gentleman with schizophrenia and anxiety who missed medications today because it was a busy day. I believe he had significant anxiety component to the shaking that was seen this evening and this is related to the missed medications. I did not see any evidence for acute infection, alternate medication reaction or suspect adverse drug effects. At this time he is calm significantly, hallucinations are relatively controlled and he will be discharged home with instructions to take his Geodon as soon as he gets home and to continue to take it regularly to avoid complications like today. Discharge Plan Departure Patient Disposition: Home Clinical Impression: Anxiety, Episode of shaking Schizophrenia Qualifiers: Schizophrenia type: unspecified Qualified Code(s): F20.9 - Schizophrenia, unspecified Activity Restrictions/Additional Instructions: Thank you for coming in today I did not find any life-threatening abnormalities with your chest x-ray, evaluation or blood work today. I gave you IV Ativan to help with the anxiety and tremor when you came in and this seemed to calm you enough so that you are able to recognize hallucinations. I gave you 50 mg of Seroquel to help with this. What you really need is to go home and take your Geodon. Please take this as soon as you get home. I would also recommend taking your morning dose when you wake up. You mentioned that you did not take her medications because today was a busy day. It may be worthwhile having a couple tablets with you or available in the car so that you can take medications if you find that you are not at home. I Encourage you to follow-up with your primary care physician and psychiatrist this week. If you find that you are getting worse or develop any new symptoms, please feel free to return to the emergency department for further evaluation. Prescriptions: No Action ziprasidone HCl [Geodon] 20 mg capsule 20 mg PO BID Qty: 60 0RF Rx Instructions: give with food (meal/snack) alprazolam 2 mg Tablet 2 mg PO BID mirtazapine [Remeron] 15 mg Tablet 15 mg PO DAILY prazosin 2 mg Capsule 3 mg PO QPM escitalopram oxalate [Lexapro] 20 mg Tablet 20 mg PO DAILY Referrals: ProviderTomas [Primary Care Provider] - Stand Alone Forms: Patient Portal/API
[2022-07-19 22:49] LABS: Prothrombin Time 11.8 SECONDS (10.1-12.7)
[2022-07-19 22:52] LABS: PTT Partial Thromboplastin Tim 32 SECONDS (26-36)
[2022-07-19] MEDS: LORazepam 2 MG/ML INJ IV (23:01)
[2022-07-19 23:02] VITALS: PULSE 90; RESP 19; O2SAT 98
[2022-07-19 23:23] LABS: Add Manual Diff / Slide Review NO; Basophils Absolute Auto 100 /uL (0-100); Basophils Percent Auto 0.7 % (0-2); Eosinophils Absolute Auto 100 /uL (0-450); Eosinophils Percent Auto 0.8 % (2-4); Hematocrit 41.8 % (41-53); Hemoglobin 15.1 g/dL (13.5-17.5); Lymphocytes Absolute Auto 3100 /uL (1100-4500); Lymphocytes Percent Auto 38.4 % (25-40); Mean Corpuscular Hemoglobin 29.6 PG (26-34); Monocytes Absolute Auto 500 /uL (0-900); Monocytes Percent Auto 6.4 % (3-14); Neutrophils Absolute Auto 4400 /uL (1500-7000); Neutrophils Percent Auto 53.7 % (50-75); Platelet Count 181 X10^3/uL (150-400); Red Blood Cell Count 5.09 X10^6/uL (4.5-5.9); Red Cell Distribution Width 12.6 % (11.6-14.8); White Blood Cell Count 8.2 X10^3/uL (4.5-11.0)
[2022-07-19 23:30] VITALS: PULSE 88; RESP 17; O2SAT 98
[2022-07-19 23:33] LABS: Alanine Aminotransferase 21 IU/L (<50); Albumin 4.4 g/dL (3.5-5.0); Albumin Globulin Ratio 1.7 (1.0-2.8); Alkaline Phosphatase 60 U/L (38-126); Aspartate Aminotransferase 28 IU/L (17-59); Bilirubin Total 0.5 mg/dL (0.2-1.3); Blood Urea Nitrogen 11 mg/dL (9-20); Calcium 8.8 mg/dL (8.4-10.2); Carbon Dioxide 28 mmol/L (22-32); Chloride 100 mmol/L (98-107); Creatine Kinase 244 U/L (55-170); Estimated Glomerular Filt Rate > 60 mL/min (>60); Globulin 2.6 g/dL (1.7-4.1); Glucose 102 mg/dL (70-100); Lipase 36 U/L (23-300); Magnesium 1.8 mg/dL (1.6-2.3); Potassium 3.5 mmol/L (3.4-5.1); Sodium 135 mmol/L (137-145)
[2022-07-19 23:44] LABS: Troponin I < 0.012 ng/mL (0.01-0.034)
[2022-07-19 23:48] LABS: HEMOLYSIS 35 (0-50)
[2022-07-19 23:50] LABS: CKMB % Relative Index 0.2 % (1.5-5.0); Creatine Kinase MB 0.45 ng/mL (<2.37)
[2022-07-20 00:02] VITALS: PULSE 99; RESP 24
[2022-07-20 00:30] VITALS: PULSE 109; RESP 20
[2022-07-20] MEDS: QUETIAPINE 25 MG TABLET 50 MG PO (00:36)
--- NOTE | 2022-07-20 00:54 | PC.NURSE ---
Patient shaking has stopped at this time. Patient resting comfortably
[2022-07-20 01:00] VITALS: PULSE 97; RESP 22
[2022-07-20 01:30] VITALS: PULSE 93; RESP 19
[2022-07-20 01:45] VITALS: PULSE 80; RESP 18
[2022-07-20 01:46] VITALS: BP 136/81
== END 2022-07-20 01:49 | disposition home or self-care (01) ==
PROVIDERS: Emergency Provider Emergency Medicine
DX: F41.9 Anxiety disorder, unspecified (principal); F20.9 Schizophrenia, unspecified; R07.9 Chest pain, unspecified; R25.1 Tremor, unspecified
CPT/HCPCS: 36415; 71045; 80053; 82550; 82553; 83690; 83735; 84484; 85025; 85610; 85730; 93005; 93010; 96374; 99284; J2060